=== PATIENT | female | born 1945 | race Two or more races ===

== ENCOUNTER 2019-10-09 17:51 | Emergency (ER) | payer MEDICARE, BC ==
[~2019-10-09] VITALS: Ht 157.5 cm; Wt 81.0 kg
[~2019-10-09 17:51] MED LIST: ATEN50TA PO; ATOR10TA87 PO; CITA10TA9 PO; GLYB2.5T4 PO; LEVO750T21 PO; LISI1TAB32 PO; LORA10TA7 PO; METF500T PO; MONT10TA26 PO; NAPR-996 PO; OMEP-50
[2019-10-09] MEDS ORDERED: LIDOcaine 1% W/epiNEPHrine 1:200,000 10ml vial IJ ONE (18:35)
[2019-10-09] MEDS ORDERED: TETanus/Pertussis (Acell)/Diphther VAC/PF (Tdap-Adult) 0.5ml syringe IMVAC ONE (18:35)
--- NOTE | 2019-10-09 18:49 | NUR ---
tech is cleaning wound, pt tolerating well
[2019-10-09 19:10] VITALS: BP 122/49
== END 2019-10-09 19:23 | disposition home or self-care (01) ==
LOC: ER 17:52
DX: S81.011A Laceration without foreign body, right knee, initial encounter (principal); I10 Essential (primary) hypertension; E11.9 Type 2 diabetes mellitus without complications; Z96.651 Presence of right artificial knee joint; Z88.2 Allergy status to sulfonamides; Z79.899 Other long term (current) drug therapy; W18.09XA Striking against other object with subsequent fall, initial encounter; Y93.89 Activity, other specified; Y92.89 Other specified places as the place of occurrence of the external cause; Y99.8 Other external cause status
CPT/HCPCS: 12002; 73560; 90471; 90715; 99284

== ENCOUNTER 2021-01-27 06:03 | Day surgery (SDC) | payer MEDICARE, BC ==
[2021-01-26 10:17] LABS: BASOPHILS # (AUTO) 0.1 X10'3 (0-0.2); BASOPHILS % (AUTO) 1.2 % (0-1); EOSINOPHILS # (AUTO) 0.2 X10'3 (0-0.9); EOSINOPHILS % (AUTO) 3.6 % (0-6); HEMATOCRIT 38.5 % (35.0-45.0); HEMOGLOBIN 12.5 g/dl (12.0-16.0); LYMPHOCYTES # (AUTO) 1.5 X10'3 (1.1-4.8); LYMPHOCYTES % (AUTO) 24.1 % (21-51); MEAN CORPUSCULAR HEMOGLOBIN 29.2 PG (27.0-31.0); MEAN CORPUSCULAR HGB CONC 32.6 g/dL (33.0-36.5); MEAN CORPUSCULAR VOLUME 89.8 FL (78-98); MEAN PLATELET VOLUME 7.8 FL (7.4-10.4); MONOCYTES # (AUTO) 0.7 X10'3 (0-0.9); MONOCYTES % (AUTO) 10.4 % (2-12); NEUTROPHILS # (AUTO) 3.8 X10'3 (1.8-7.7); NEUTROPHILS % (AUTO) 60.7 % (42-75); PLATELET COUNT 219 X10'3 (140-440); RED BLOOD COUNT 4.29 X10'6 (4.20-5.60); RED CELL DISTRIBUTION WIDTH 14.5 % (11.5-14.5); WHITE BLOOD COUNT 6.3 X10'3 (4.5-11.0)
[2021-01-26 10:28] LABS: ALBUMIN 3.7 G/DL (3.4-5.0); ANION GAP 9 (8-16); BLOOD UREA NITROGEN 20 MG/DL (7-18); BUN/CREATININE RATIO 20.4 (6.6-38.0); CALCIUM 9.3 MG/DL (8.5-10.1); CHLORIDE 107 MMOL/L (99-107); CREATININE 0.98 MG/DL (0.40-0.90); GLUCOSE 100 MG/DL (70-104); POTASSIUM 4.2 MMOL/L (3.5-5.1); SODIUM 143 MMOL/L (135-145); TOTAL CARBON DIOXIDE 26.6 MMOL/L (24-32); eGFR 55 ML/MIN
[2021-01-26 10:30] LABS: PARTIAL THROMBOPLASTIN TIME 25 SECONDS (22-32)
[2021-01-27] VITALS (12 sets, daily range): BP systolic 104–154; BP diastolic 42–89
[~2021-01-27] VITALS: Ht 154.9 cm; Wt 81.8 kg
[~2021-01-27 06:03] MED LIST changes: -MONT10TA26 PO; +MONT10TA32 PO
[2021-01-27] MEDS ORDERED: normal saline 1,000 ML IV SCH (06:55)
[2021-01-27] MEDS ORDERED: diphenhydrAMINE 25mg capsule PO PRN (06:55)
[2021-01-27] MEDS ORDERED: LORazepam 0.5 MG tablet PO PRN (06:55)
[2021-01-27] MEDS ORDERED: LIDOcaine/PRILOcaine 5gm cream TP ONE (06:55)
[2021-01-27] MEDS ORDERED: fentaNYL/PF 50MCG/1 ML 2ML syringe ONE (07:17)
[2021-01-27] MEDS ORDERED: METF-438 PO (07:17)
[2021-01-27] MEDS ORDERED: LOP25T PO (07:17)
[2021-01-27] MEDS ORDERED: LISI1TAB29 PO (07:17)
[2021-01-27] MEDS ORDERED: TURM1POW PO (07:17)
[2021-01-27] MEDS ORDERED: MULT-1085 PO (07:17)
[2021-01-27] MEDS ORDERED: GLUC1TAB9 PO (07:17)
[2021-01-27] MEDS ORDERED: LORA-641 PO (07:17)
[2021-01-27] MEDS ORDERED: LACT1CAP65 PO (07:17)
[2021-01-27] MEDS ORDERED: verapamil 2.5 mg/ml inj IV ONE (07:17)
[2021-01-27] MEDS ORDERED: FLAX10007 PO (07:17)
[2021-01-27] MEDS ORDERED: VITA400T10 PO (07:17)
[2021-01-27] MEDS ORDERED: nitroGLYCERIN-Tridil 50MG/D5W 250 ML IV ONE (07:17)
[2021-01-27] MEDS ORDERED: midazolam 1 mg/ML 2ml injection ONE (07:17)
[2021-01-27] MEDS ORDERED: ASPI-1071 PO (07:17)
[2021-01-27] MEDS ORDERED: ERGO50CA PO (07:17)
[2021-01-27] MEDS ORDERED: heparin 1,000unit/ml 10ml vial 10 ML ONE (07:18)
[2021-01-27] MEDS ORDERED: iohexol 350 MG/ML 50ML vial IV ONE (07:18)
[2021-01-27] MEDS ORDERED: iohexol 350MG/ML 100ml bottle IV ONE (07:18)
[2021-01-27] MEDS ORDERED: LIDOcaine 1% (10mg/ml)w/preservative injection 20ml MDV ONE (07:18)
[2021-01-31 10:39] LABS: ISTAT Hct MIX 36 %PCV (35-48); ISTAT O2 SATURATION MIX VENOUS 70 % (60-80); ISTAT SOURCE BLNK
[2021-01-31 10:40] LABS: ISTAT HGB ART 12.2 g/dl (12.0-16.0); ISTAT Hct ART 36 %PCV (35-48); ISTAT O2 SATURATION ARTERIAL 94 % (95-98); ISTAT SOURCE BLNK
== END 2021-01-27 14:55 | disposition home or self-care (01) ==
LOC: SSTAY O 06:03
PROVIDERS: ATTEND Internal Medicine Cardiovascular Disease
DX: R94.39 Abnormal result of other cardiovascular function study (principal); I25.10 Atherosclerotic heart disease of native coronary artery without angina pectoris; I10 Essential (primary) hypertension; E11.9 Type 2 diabetes mellitus without complications; E66.3 Overweight; Z68.30 Body mass index [BMI] 30.0-30.9, adult; E78.5 Hyperlipidemia, unspecified; I44.7 Left bundle-branch block, unspecified; I65.21 Occlusion and stenosis of right carotid artery; Z96.653 Presence of artificial knee joint, bilateral; Z90.710 Acquired absence of both cervix and uterus; Z79.82 Long term (current) use of aspirin; Z79.899 Other long term (current) drug therapy; Z79.84 Long term (current) use of oral hypoglycemic drugs; Z98.890 Other specified postprocedural states; Z87.891 Personal history of nicotine dependence; Z88.2 Allergy status to sulfonamides
CPT/HCPCS: 36415; 76937; 80048; 82948; 85025; 85610; 85730; 93005; 93460; 99152; 99153; C1769; C1894; J1644; J2001; J2250; J3010; Q9967; 82803; 85014; A4620; A5120; A6258; C1751; J3490

== ENCOUNTER 2023-02-09 14:04 | Outpatient (CLI) | payer MEDICARE, BC ==
[~2023-02-09 14:04] MED LIST changes: +ASPI-1071 PO; -ATEN50TA PO; -CITA10TA9 PO; +ERGO50CA PO; +FLAX10007 PO; +GLUC1TAB9 PO; -GLYB2.5T4 PO; +LACT1CAP65 PO; -LEVO750T21 PO; -LISI1TAB32 PO; +LISI1TAB53 PO; +LOP25T PO; +LORA-641 PO; -LORA10TA7 PO; +METF-438 PO; -METF500T PO; +MONT-40 PO; -MONT10TA32 PO; +MULT-1085 PO; -NAPR-996 PO; -OMEP-50; +TURM1POW PO; +VITA400T10 PO
== END 2023-02-09 23:59 | disposition home or self-care (01) ==
LOC: RT 14:04
PROVIDERS: ATTEND Specialist
DX: J44.9 Chronic obstructive pulmonary disease, unspecified (principal); R06.02 Shortness of breath
CPT/HCPCS: 85018; 94010; 94727; 94729